=== PATIENT | male | born 1960 | race Caucasian/White ===

== ENCOUNTER 2020-10-03 09:41 | Emergency (ER) | payer SELFPAY ==
[2020-10-03] MEDS ORDERED: Sodium Chloride 0.9% 10 ML Syringe FLUSH PRN (10:27)
[2020-10-03] MEDS ORDERED: Sodium Chloride 0.9% 500 ML IV ONE (10:27)
[2020-10-03] MEDS ORDERED: MVI, Adult with Vitamin K 10 ML, Thiamine 100 MG, Folic Acid 1 MG, Magnesium Sulfate 3 ... IV SCH ×5 (11:00)
--- NOTE | 2020-10-03 11:04 | EDM.PDOC ---
ED HPI GENERAL MEDICAL PROBLEM - General Stated Complaint: ALTERED LEVEL OF CONSCIOUSNESS Time Seen by Provider: 10/03/20 10:15 Source of Information: Reports: Patient, EMS History Limitations: Reports: Other (he states he is confused) - History of Present Illness INITIAL COMMENTS - FREE TEXT/NARRATIVE: 60 year old male with PMH of ETOH abuse presents to ED after reported 5 days of detoxing at home. He reports several falls in the past few weeks. His sister found him on the porch after he tripped on the step. Unknown how long patient was down. He is a poor historian with his history of falls. Left knee pain and bruising in different stages of healing, patient states he has fallen at least 3 times on his left knee. He admits to visual hallucinations decreasing over the past 3 days. Denies any PMH, CP, fever, abd pain, itching, SOB, KUMAR. + nausea, was given 4mg PO zofran by EMS. Location: Reports: Lower Extremity, Left Severity: Mild - Related Data Allergies Allergy/AdvReac Type Severity Reaction Status Date / Time No Known Allergies Allergy Verified 10/03/20 11:08 ED ROS GENERAL - Review of Systems Review Of Systems: See Below Constitutional: Reports: Weakness HEENT: Reports: No Symptoms Respiratory: Reports: No Symptoms Cardiovascular: Reports: No Symptoms Endocrine: Reports: No Symptoms GI/Abdominal: Reports: No Symptoms : Reports: No Symptoms Musculoskeletal: Reports: Leg Pain Skin: Reports: Bruising (left knee) Neurological: Reports: Confusion, Tremors, Other (mild tremora in bilateral hands noted) Psychiatric: Reports: Confusion, Hallucinations. Denies: Homicidal Ideation, Suicidal Ideation Hematologic/Lymphatic: Reports: No Symptoms Immunologic: Reports: No Symptoms ED EXAM, GENERAL - Physical Exam Exam: See Below Exam Limited By: No Limitations General Appearance: Alert Eye Exam: Bilateral Eye: Nystagmus, PERRL, Other (yellow sclera noted) Ears: Normal External Exam, Normal Canal, Hearing Grossly Normal, Normal TMs Ear Exam: Bilateral Ear: Auricle Normal, Canal Normal, TM normal Nose: Normal Inspection, Normal Mucosa, No Blood Throat/Mouth: Normal Inspection, Normal Lips, Normal Teeth, Normal Gums, Normal Oropharynx, Normal Voice, No Airway Compromise, Other (dry mouth) Head: Atraumatic Neck: Normal Inspection, Non-Tender, Full Range of Motion. No: Carotid Bruit, Lymphadenopathy (R) Respiratory/Chest: No Respiratory Distress, Lungs Clear, Normal Breath Sounds, No Accessory Muscle Use, Chest Non-Tender Cardiovascular: Normal Peripheral Pulses, No Edema, No JVD, No Murmur, Tachycardia Peripheral Pulses: 3+: Carotid (L), Carotid (R), Radial (L), Radial (R), Posterior Tibial (L), Posterior Tibial (R), Dorsalis Pedis (L), Dorsalis Pedis (R) GI/Abdominal: Normal Bowel Sounds, Soft, Non-Tender, Distended Back Exam: Normal Inspection, Full Range of Motion. No: CVA Tenderness (R), CVA Tenderness (L) Extremities: Normal Inspection, Normal Range of Motion, No Pedal Edema, Leg Pain, Mottled Neurological: Alert, Oriented, CN II-XII Intact, No Motor/Sensory Deficits, Confused Psychiatric: Normal Affect, Normal Mood Skin Exam: Dry, Intact, No Rash, Cool, Pallor Lymphatic: No Adenopathy Course - Vital Signs Last Recorded V/S: Last Vital Signs Temp 96.9 F 10/03/20 10:10 Pulse 107 H 10/03/20 14:18 Resp 18 10/03/20 14:18 BP 186/104 H 10/03/20 14:18 Pulse Ox 98 10/03/20 12:31 - Orders/Labs/Meds Orders: Active Orders 24 hr Category Date Time Status CIWAA Assessment [RC] Q30M Care 10/03/20 10:48 Active EKG Documentation Completion [RC] ASDIRECTED Care 10/03/20 10:26 Active EKG Documentation Completion [RC] ASDIRECTED Care 10/03/20 13:11 Active LACTIC ACID [CHEM] Stat Lab 10/03/20 14:42 Ordered TROPONIN I [CHEM] Stat Lab 10/03/20 14:43 Ordered MVI, Adult with Vitamin K [Infuvite Adult] 10 ml Med 10/03/20 11:00 Active Thiamine [Vitamin B-1] 100 mg Folic Acid 1 mg Magnesium Sulfate [Magnesium Sulfate 50%] 3 gm Sodium Chloride 0.9% [Normal Saline] 1,000 ml IV ASDIRECTED Magnesium Sulfate [Magnesium Sulfate 50%] 4 gm Med 10/03/20 14:45 Active Sodium Chloride 0.9% [Normal Saline] 50 ml IV ASDIRECTED Sodium Chloride 0.9% [Saline Flush] Med 10/03/20 10:27 Active 10 ml FLUSH ASDIRECTED PRN Sodium Chloride 0.9% with KCl [Normal Saline with 40 Med 10/03/20 13:15 Active mEq KCl] 2,000 ml IV ASDIRECTED Peripheral IV Insertion Adult [OM.PC] Routine Oth 10/03/20 10:27 Ordered EKG 12 Lead [EK] Routine Ther 10/03/20 10:26 Ordered EKG 12 Lead [EK] Stat Ther 10/03/20 13:10 Ordered Medication Orders Multivitamins/Minerals 10 ml/Thiamine HCl 100 mg/ Folic Acid 1 mg/ Magnesium Sulfate 3 gm/ Sodium Chloride 1,017.2 mls @ 1,000 mls/hr IV ASDIRECTED DAMIÁN Last Admin: 10/03/20 11:23 Dose: 1,000 mls/hr Documented by: JOSH Potassium Chloride/Sodium Chloride (Normal Saline With 40 Meq Kcl) 2,000 mls @ 150 mls/hr IV ASDIRECTED DAMIÁN Magnesium Sulfate 4 gm/ Sodium (Chloride) 58 mls @ 60 mls/hr IV ASDIRECTED DAMIÁN Sodium Chloride (Sodium Chloride 0.9% 10 Ml Syringe) 10 ml FLUSH ASDIRECTED PRN PRN Reason: Keep Vein Open Last Admin: 10/03/20 11:24 Dose: 10 ml Documented by: JOSH Labs: Laboratory Tests 10/03/20 10/03/20 10/03/20 Range/Units 10:17 10:17 10:17 WBC 17.5 H (4.0-11.0) K/uL RBC 4.44 L (4.50-6.50) M/uL Hgb 16.3 (13.0-18.0) g/dL Hct 46.0 (40.0-54.0) % MCV 104 H (76-96) fL MCH 36.7 H (27.0-32.0) pg MCHC 35.4 H (31.0-35.0) g/dL RDW 14.4 (11.0-16.0) % Plt Count 65 L (150-400) K/uL MPV 13.0 H (6.0-10.0) fL Neut % (Auto) 78.6 H (45.0-70.0) % Lymph % (Auto) 11.3 L (20.0-40.0) % Reynolds % (Auto) 9.9 (3.0-10.0) % Eos % (Auto) 0.1 L (1.0-5.0) % Baso % (Auto) 0.1 (0.0-0.5) % Neut # (Auto) 13.80 H (2.00-7.50) K/uL Lymph # (Auto) 1.98 (1.50-4.00) K/uL Reynolds # (Auto) 1.73 H (0.20-0.80) K/uL Eos # (Auto) 0.01 L (0.04-0.40) K/uL Baso # (Auto) 0.01 L (0.02-0.10) K/uL PT (9.0-11.5) sec INR (1.0-3.5) ABG pH (7.35-7.45) ABG pCO2 (35-45) mmHg ABG pO2 (80-105) mmHg ABG HCO3 (22-26) mmol/L ABG O2 Saturation (95-98) % ABG Base Excess (-2-2) O2 Delivery Device Sodium 137 (136-145) mmol/L Potassium 1.6 L* (3.5-5.1) mmol/L Chloride 80 L* (98-107) mmol/L Carbon Dioxide 33.2 H (21.0-32.0) mmol/L Anion Gap 25.4 H (5.0-15.0) mmol/L BUN 16 (8-26) mg/dL Creatinine 2.61 H (0.70-1.30) mg/dL Est Cr Clr Drug Dosing 31.85 mL/min Estimated GFR (MDRD) 25 L (>60) MLS/MIN BUN/Creatinine Ratio 6.1 (6-25) Glucose 88 (74-100) mg/dL Lactic Acid (0.4-2.0) mmol/L Calcium 16.5 H* (8.5-10.1) mg/dL Phosphorus (2.5-4.9) mg/dL Magnesium (1.8-2.4) mg/dL Total Bilirubin 4.7 H (0.0-1.0) mg/dL AST 149 H (15-37) U/L ALT 80 H (12-78) U/L Alkaline Phosphatase 133 H (46-116) U/L Ammonia 15 (11-32) umol/L Creatine Kinase (21-232) U/L Troponin I (0.000-0.060) ng/mL Total Protein 7.6 (6.4-8.2) g/dL Albumin 3.5 (3.4-5.0) g/dL Globulin 4.1 (2.2-4.2) g/dL Albumin/Globulin Ratio 0.9 (0.8-2.0) TSH, Ultra Sensitive (0.358-3.740) uIU/mL Urine Color Urine Appearance (CLEAR) Urine pH (5.0-8.0) Ur Specific [place] (1.003-1.030) Urine Protein (NEGATIVE) mg/dL Urine Glucose (UA) (NEGATIVE) mg/dL Urine Ketones (NEGATIVE) mg/dL Urine Occult Blood (NEGATIVE) Urine Nitrite (NEGATIVE) Urine Bilirubin (NEGATIVE) Urine Urobilinogen (0.2-1.0) E.U./dL Ur Leukocyte Esterase (NEGATIVE) U Hyaline Cast (Auto) /HPF Urine RBC /HPF Urine WBC /HPF Urine WBC Clumps /HPF Ur Squamous Epith Cells /HPF Urine Bacteria /HPF Ethyl Alcohol < 0.0 L (<3.0) mg/dL SARS-CoV-2 RNA (JAIDEN) (NEGATIVE) 10/03/20 10/03/20 10/03/20 Range/Units 10:26 10:57 11:24 WBC (4.0-11.0) K/uL RBC (4.50-6.50) M/uL Hgb (13.0-18.0) g/dL Hct (40.0-54.0) % MCV (76-96) fL MCH (27.0-32.0) pg MCHC (31.0-35.0) g/dL RDW (11.0-16.0) % Plt Count (150-400) K/uL MPV (6.0-10.0) fL Neut % (Auto) (45.0-70.0) % Lymph % (Auto) (20.0-40.0) % Reynolds % (Auto) (3.0-10.0) % Eos % (Auto) (1.0-5.0) % Baso % (Auto) (0.0-0.5) % Neut # (Auto) (2.00-7.50) K/uL Lymph # (Auto) (1.50-4.00) K/uL Reynolds # (Auto) (0.20-0.80) K/uL Eos # (Auto) (0.04-0.40) K/uL Baso # (Auto) (0.02-0.10) K/uL PT (9.0-11.5) sec INR (1.0-3.5) ABG pH (7.35-7.45) ABG pCO2 (35-45) mmHg ABG pO2 (80-105) mmHg ABG HCO3 (22-26) mmol/L ABG O2 Saturation (95-98) % ABG Base Excess (-2-2) O2 Delivery Device Sodium (136-145) mmol/L Potassium (3.5-5.1) mmol/L Chloride (98-107) mmol/L Carbon Dioxide (21.0-32.0) mmol/L Anion Gap (5.0-15.0) mmol/L BUN (8-26) mg/dL Creatinine (0.70-1.30) mg/dL Est Cr Clr Drug Dosing mL/min Estimated GFR (MDRD) (>60) MLS/MIN BUN/Creatinine Ratio (6-25) Glucose (74-100) mg/dL Lactic Acid 17.4 H (0.4-2.0) mmol/L Calcium (8.5-10.1) mg/dL Phosphorus (2.5-4.9) mg/dL Magnesium (1.8-2.4) mg/dL Total Bilirubin (0.0-1.0) mg/dL AST (15-37) U/L ALT (12-78) U/L Alkaline Phosphatase (46-116) U/L Ammonia (11-32) umol/L Creatine Kinase 732 H (21-232) U/L Troponin I 0.730 H* (0.000-0.060) ng/mL Total Protein (6.4-8.2) g/dL Albumin (3.4-5.0) g/dL Globulin (2.2-4.2) g/dL Albumin/Globulin Ratio (0.8-2.0) TSH, Ultra Sensitive (0.358-3.740) uIU/mL Urine Color Urine Appearance (CLEAR) Urine pH (5.0-8.0) Ur Specific [place] (1.003-1.030) Urine Protein (NEGATIVE) mg/dL Urine Glucose (UA) (NEGATIVE) mg/dL Urine Ketones (NEGATIVE) mg/dL Urine Occult Blood (NEGATIVE) Urine Nitrite (NEGATIVE) Urine Bilirubin (NEGATIVE) Urine Urobilinogen (0.2-1.0) E.U./dL Ur Leukocyte Esterase (NEGATIVE) U Hyaline Cast (Auto) /HPF Urine RBC /HPF Urine WBC /HPF Urine WBC Clumps /HPF Ur Squamous Epith Cells /HPF Urine Bacteria /HPF Ethyl Alcohol (<3.0) mg/dL SARS-CoV-2 RNA (JAIDEN) (NEGATIVE) 10/03/20 10/03/20 10/03/20 Range/Units 11:56 12:21 13:14 WBC (4.0-11.0) K/uL RBC (4.50-6.50) M/uL Hgb (13.0-18.0) g/dL Hct (40.0-54.0) % MCV (76-96) fL MCH (27.0-32.0) pg MCHC (31.0-35.0) g/dL RDW (11.0-16.0) % Plt Count (150-400) K/uL MPV (6.0-10.0) fL Neut % (Auto) (45.0-70.0) % Lymph % (Auto) (20.0-40.0) % Reynolds % (Auto) (3.0-10.0) % Eos % (Auto) (1.0-5.0) % Baso % (Auto) (0.0-0.5) % Neut # (Auto) (2.00-7.50) K/uL Lymph # (Auto) (1.50-4.00) K/uL Reynolds # (Auto) (0.20-0.80) K/uL Eos # (Auto) (0.04-0.40) K/uL Baso # (Auto) (0.02-0.10) K/uL PT (9.0-11.5) sec INR (1.0-3.5) ABG pH (7.35-7.45) ABG pCO2 (35-45) mmHg ABG pO2 (80-105) mmHg ABG HCO3 (22-26) mmol/L ABG O2 Saturation (95-98) % ABG Base Excess (-2-2) O2 Delivery Device Sodium (136-145) mmol/L Potassium (3.5-5.1) mmol/L Chloride (98-107) mmol/L Carbon Dioxide (21.0-32.0) mmol/L Anion Gap (5.0-15.0) mmol/L BUN (8-26) mg/dL Creatinine (0.70-1.30) mg/dL Est Cr Clr Drug Dosing mL/min Estimated GFR (MDRD) (>60) MLS/MIN BUN/Creatinine Ratio (6-25) Glucose (74-100) mg/dL Lactic Acid (0.4-2.0) mmol/L Calcium (8.5-10.1) mg/dL Phosphorus (2.5-4.9) mg/dL Magnesium 2.5 H (1.8-2.4) mg/dL Total Bilirubin (0.0-1.0) mg/dL AST (15-37) U/L ALT (12-78) U/L Alkaline Phosphatase (46-116) U/L Ammonia (11-32) umol/L Creatine Kinase (21-232) U/L Troponin I (0.000-0.060) ng/mL Total Protein (6.4-8.2) g/dL Albumin (3.4-5.0) g/dL Globulin (2.2-4.2) g/dL Albumin/Globulin Ratio (0.8-2.0) TSH, Ultra Sensitive 3.181 (0.358-3.740) uIU/mL Urine Color Urine Appearance (CLEAR) Urine pH (5.0-8.0) Ur Specific [place] (1.003-1.030) Urine Protein (NEGATIVE) mg/dL Urine Glucose (UA) (NEGATIVE) mg/dL Urine Ketones (NEGATIVE) mg/dL Urine Occult Blood (NEGATIVE) Urine Nitrite (NEGATIVE) Urine Bilirubin (NEGATIVE) Urine Urobilinogen (0.2-1.0) E.U./dL Ur Leukocyte Esterase (NEGATIVE) U Hyaline Cast (Auto) /HPF Urine RBC /HPF Urine WBC /HPF Urine WBC Clumps /HPF Ur Squamous Epith Cells /HPF Urine Bacteria /HPF Ethyl Alcohol (<3.0) mg/dL SARS-CoV-2 RNA (JAIDEN) Negative (NEGATIVE) 10/03/20 10/03/20 10/03/20 Range/Units 13:14 13:15 13:20 WBC (4.0-11.0) K/uL RBC (4.50-6.50) M/uL Hgb (13.0-18.0) g/dL Hct (40.0-54.0) % MCV (76-96) fL MCH (27.0-32.0) pg MCHC (31.0-35.0) g/dL RDW (11.0-16.0) % Plt Count (150-400) K/uL MPV (6.0-10.0) fL Neut % (Auto) (45.0-70.0) % Lymph % (Auto) (20.0-40.0) % Reynolds % (Auto) (3.0-10.0) % Eos % (Auto) (1.0-5.0) % Baso % (Auto) (0.0-0.5) % Neut # (Auto) (2.00-7.50) K/uL Lymph # (Auto) (1.50-4.00) K/uL Reynolds # (Auto) (0.20-0.80) K/uL Eos # (Auto) (0.04-0.40) K/uL Baso # (Auto) (0.02-0.10) K/uL PT (9.0-11.5) sec INR (1.0-3.5) ABG pH 7.53 H* (7.35-7.45) ABG pCO2 50.0 H (35-45) mmHg ABG pO2 57.6 L* (80-105) mmHg ABG HCO3 41.7 H (22-26) mmol/L ABG O2 Saturation 91.8 L (95-98) % ABG Base Excess 19.0 H (-2-2) O2 Delivery Device Room air Sodium (136-145) mmol/L Potassium 1.8 L* (3.5-5.1) mmol/L Chloride (98-107) mmol/L Carbon Dioxide (21.0-32.0) mmol/L Anion Gap (5.0-15.0) mmol/L BUN (8-26) mg/dL Creatinine (0.70-1.30) mg/dL Est Cr Clr Drug Dosing mL/min Estimated GFR (MDRD) (>60) MLS/MIN BUN/Creatinine Ratio (6-25) Glucose (74-100) mg/dL Lactic Acid (0.4-2.0) mmol/L Calcium (8.5-10.1) mg/dL Phosphorus (2.5-4.9) mg/dL Magnesium (1.8-2.4) mg/dL Total Bilirubin (0.0-1.0) mg/dL AST (15-37) U/L ALT (12-78) U/L Alkaline Phosphatase (46-116) U/L Ammonia (11-32) umol/L Creatine Kinase (21-232) U/L Troponin I (0.000-0.060) ng/mL Total Protein (6.4-8.2) g/dL Albumin (3.4-5.0) g/dL Globulin (2.2-4.2) g/dL Albumin/Globulin Ratio (0.8-2.0) TSH, Ultra Sensitive (0.358-3.740) uIU/mL Urine Color Yellow Urine Appearance Cloudy (CLEAR) Urine pH 5.0 (5.0-8.0) Ur Specific [place] >= 1.030 (1.003-1.030) Urine Protein >=300 H (NEGATIVE) mg/dL Urine Glucose (UA) Negative (NEGATIVE) mg/dL Urine Ketones 15 H (NEGATIVE) mg/dL Urine Occult Blood Moderate H (NEGATIVE) Urine Nitrite Negative (NEGATIVE) Urine Bilirubin Moderate H (NEGATIVE) Urine Urobilinogen 1.0 (0.2-1.0) E.U./dL Ur Leukocyte Esterase Negative (NEGATIVE) U Hyaline Cast (Auto) Moderate /HPF Urine RBC 20-30 H /HPF Urine WBC 5-10 H /HPF Urine WBC Clumps Few /HPF Ur Squamous Epith Cells Many /HPF Urine Bacteria Moderate H /HPF Ethyl Alcohol (<3.0) mg/dL SARS-CoV-2 RNA (JAIDEN) (NEGATIVE) 10/03/20 10/03/20 Range/Units 14:04 14:04 WBC (4.0-11.0) K/uL RBC (4.50-6.50) M/uL Hgb (13.0-18.0) g/dL Hct (40.0-54.0) % MCV (76-96) fL MCH (27.0-32.0) pg MCHC (31.0-35.0) g/dL RDW (11.0-16.0) % Plt Count (150-400) K/uL MPV (6.0-10.0) fL Neut % (Auto) (45.0-70.0) % Lymph % (Auto) (20.0-40.0) % Reynolds % (Auto) (3.0-10.0) % Eos % (Auto) (1.0-5.0) % Baso % (Auto) (0.0-0.5) % Neut # (Auto) (2.00-7.50) K/uL Lymph # (Auto) (1.50-4.00) K/uL Reynolds # (Auto) (0.20-0.80) K/uL Eos # (Auto) (0.04-0.40) K/uL Baso # (Auto) (0.02-0.10) K/uL PT 13.2 H (9.0-11.5) sec INR 1.3 (1.0-3.5) ABG pH (7.35-7.45) ABG pCO2 (35-45) mmHg ABG pO2 (80-105) mmHg ABG HCO3 (22-26) mmol/L ABG O2 Saturation (95-98) % ABG Base Excess (-2-2) O2 Delivery Device Sodium 127 L (136-145) mmol/L Potassium 1.9 L* (3.5-5.1) mmol/L Chloride 84 L* (98-107) mmol/L Carbon Dioxide 40.6 H D (21.0-32.0) mmol/L Anion Gap 4.3 L (5.0-15.0) mmol/L BUN 16 (8-26) mg/dL Creatinine 2.12 H (0.70-1.30) mg/dL Est Cr Clr Drug Dosing 39.22 mL/min Estimated GFR (MDRD) 32 L (>60) MLS/MIN BUN/Creatinine Ratio 7.5 (6-25) Glucose 120 H D (74-100) mg/dL Lactic Acid (0.4-2.0) mmol/L Calcium 13.9 H (8.5-10.1) mg/dL Phosphorus 4.7 (2.5-4.9) mg/dL Magnesium 2.1 (1.8-2.4) mg/dL Total Bilirubin (0.0-1.0) mg/dL AST (15-37) U/L ALT (12-78) U/L Alkaline Phosphatase (46-116) U/L Ammonia (11-32) umol/L Creatine Kinase (21-232) U/L Troponin I (0.000-0.060) ng/mL Total Protein (6.4-8.2) g/dL Albumin (3.4-5.0) g/dL Globulin (2.2-4.2) g/dL Albumin/Globulin Ratio (0.8-2.0) TSH, Ultra Sensitive (0.358-3.740) uIU/mL Urine Color Urine Appearance (CLEAR) Urine pH (5.0-8.0) Ur Specific [place] (1.003-1.030) Urine Protein (NEGATIVE) mg/dL Urine Glucose (UA) (NEGATIVE) mg/dL Urine Ketones (NEGATIVE) mg/dL Urine Occult Blood (NEGATIVE) Urine Nitrite (NEGATIVE) Urine Bilirubin (NEGATIVE) Urine Urobilinogen (0.2-1.0) E.U./dL Ur Leukocyte Esterase (NEGATIVE) U Hyaline Cast (Auto) /HPF Urine RBC /HPF Urine WBC /HPF Urine WBC Clumps /HPF Ur Squamous Epith Cells /HPF Urine Bacteria /HPF Ethyl Alcohol (<3.0) mg/dL SARS-CoV-2 RNA (JAIDEN) (NEGATIVE) Meds: Medications Generic Name Dose Route Start Last Admin Trade Name Freq PRN Reason Stop Dose Admin Multivitamins/Minerals 10 ml/ 1,017.2 mls @ 1,000 mls/hr 10/03/20 11:00 10/03/20 11:23 Thiamine HCl 100 mg/ Folic IV 1,000 mls/hr Acid 1 mg/ Magnesium Sulfate 3 ASDIRECTED DAMIÁN Administration gm/ Sodium Chloride Potassium Chloride/Sodium Chloride 2,000 mls @ 150 mls/hr 10/03/20 13:15 Normal Saline With 40 Meq Kcl IV ASDIRECTED DAMIÁN Magnesium Sulfate 4 gm/ Sodium 58 mls @ 60 mls/hr 10/03/20 14:45 Chloride IV ASDIRECTED DAMIÁN Sodium Chloride 10 ml 10/03/20 10:27 10/03/20 11:24 Sodium Chloride 0.9% 10 Ml Syringe FLUSH 10 ml ASDIRECTED PRN Administration Keep Vein Open Discontinued Medications Generic Name Dose Route Start Last Admin Trade Name Freq PRN Reason Stop Dose Admin Sodium Chloride 500 mls @ 500 mls/hr 10/03/20 10:27 10/03/20 10:15 Normal Saline IV 10/03/20 11:26 500 mls/hr .BOLUS ONE Administration Potassium Chloride Confirm 10/03/20 12:13 10/03/20 12:22 Kcl In Water 10 Meq/50 Ml Administered 10/03/20 12:14 50 mls/hr Dose Administration 100 mls @ as directed .ROUTE .STK-MED ONE Potassium Chloride 10 meq/ 50 mls @ 50 mls/hr 10/03/20 12:21 10/03/20 12:00 Premix IV 10/03/20 13:20 50 mls/hr ONETIME ONE Administration Potassium Chloride/Sodium Chloride Confirm 10/03/20 13:00 10/03/20 13:00 Normal Saline With 40 Meq Kcl Administered 10/03/20 13:01 250 mls/hr Dose Administration 1,000 mls @ as directed .ROUTE .STK-MED ONE Ceftriaxone Sodium 2 gm/ 100 mls @ 100 mls/hr 10/03/20 13:11 10/03/20 13:29 Sodium Chloride IV 10/03/20 14:10 100 mls/hr ONETIME ONE Administration Ceftriaxone Sodium 2 gm/ 50 mls @ 50 mls/hr 10/03/20 14:09 Sodium Chloride IV 10/03/20 14:10 ONETIME ONE Magnesium Sulfate 4 gm/ Sodium 58 mls @ 60 mls/hr 10/03/20 14:45 Chloride IV 10/03/20 23:59 ASDIRECTED DAMIÁN Magnesium Sulfate 4 gm 10/03/20 13:13 Magnesium Sulfate/Water 4 Gm/50 Ml Premix Bag IV 10/03/20 13:14 ONETIME ONE Potassium Chloride Confirm 10/03/20 12:14 Potassium Chloride 20 Meq Tab.Er Administered 10/03/20 12:15 Dose 40 meq .ROUTE .STK-MED ONE Potassium Chloride 40 meq 10/03/20 12:20 10/03/20 12:22 Potassium Chloride 20 Meq Tab.Er PO 10/03/20 12:21 40 meq ONETIME ONE Administration Potassium Chloride 40 meq 10/03/20 12:41 10/03/20 13:29 Potassium Chloride 20 Meq Tab.Er PO 10/03/20 12:42 40 meq ONETIME ONE Administration Departure - Departure Time of Disposition: 15:52 Disposition: DC/Tfer to [facility] ([facility]3] Hospital 02 Condition: Fair Clinical Impression: Alcohol abuse, Elevated troponin, Pyelonephritis, acute, Hypokalemia, Alcohol withdrawal delirium Leukocytosis Qualifiers: Leukocytosis type: unspecified Qualified Code(s): D72.829 - Elevated white blood cell count, unspecified Pancreatitis Qualifiers: Chronicity: acute Pancreatitis type: other Acute pancreatitis complication: unspecified Qualified Code(s): K85.80 - Other acute pancreatitis without necrosis or infection - Discharge Information *PRESCRIPTION DRUG MONITORING PROGRAM REVIEWED*: Not Applicable *COPY OF PRESCRIPTION DRUG MONITORING REPORT IN PATIENT LEONIDAS: Not Applicable Referrals: PCP,None [Primary Care Provider] - Sepsis Event Note (ED) - Focused Exam Vital Signs: Vital Signs Temp Pulse Resp BP Pulse Ox 10/03/20 14:18 107 H 18 186/104 H 10/03/20 12:31 150/90 H 98 10/03/20 10:10 96.9 F 119 H 20 117/79 98 - My Orders Last 24 Hours: My Active Orders 10/03/20 10:26 EKG Documentation Completion [RC] ASDIRECTED EKG 12 Lead [EK] Routine 10/03/20 10:27 Sodium Chloride 0.9% [Saline Flush] 10 ml FLUSH ASDIRECTED PRN Peripheral IV Insertion Adult [OM.PC] Routine 10/03/20 10:48 CIWAA Assessment [RC] Q30M 10/03/20 11:00 MVI, Adult with Vitamin K [Infuvite Adult] 10 ml Thiamine [Vitamin B-1] 100 mg Folic Acid 1 mg Magnesium Sulfate [Magnesium Sulfate 50%] 3 gm Sodium Chloride 0.9% [Normal Saline] 1,000 ml IV ASDIRECTED 10/03/20 14:42 LACTIC ACID [CHEM] Stat 10/03/20 14:43 TROPONIN I [CHEM] Stat 10/03/20 14:45 Magnesium Sulfate [Magnesium Sulfate 50%] 4 gm Sodium Chloride 0.9% [Normal Saline] 50 ml IV ASDIRECTED - Assessment/Plan Last 24 Hours: My Active Orders 10/03/20 10:26 EKG Documentation Completion [RC] ASDIRECTED EKG 12 Lead [EK] Routine 10/03/20 10:27 Sodium Chloride 0.9% [Saline Flush] 10 ml FLUSH ASDIRECTED PRN Peripheral IV Insertion Adult [OM.PC] Routine 10/03/20 10:48 CIWAA Assessment [RC] Q30M 10/03/20 11:00 MVI, Adult with Vitamin K [Infuvite Adult] 10 ml Thiamine [Vitamin B-1] 100 mg Folic Acid 1 mg Magnesium Sulfate [Magnesium Sulfate 50%] 3 gm Sodium Chloride 0.9% [Normal Saline] 1,000 ml IV ASDIRECTED 10/03/20 14:42 LACTIC ACID [CHEM] Stat 10/03/20 14:43 TROPONIN I [CHEM] Stat 10/03/20 14:45 Magnesium Sulfate [Magnesium Sulfate 50%] 4 gm Sodium Chloride 0.9% [Normal Saline] 50 ml IV ASDIRECTED Assessment:: CXR negative for pneumonia or fractures left ankle and left knee are negative for fractures. Plan: Patient informed of potassium and troponin levels, we discussed transfer, he declines, I told him we will talk more after all the labs have been resulted. He is agreeable to this plan. Called ehospitalist, Dr. Mendez. waiting for call back. [address] Hernandez, she will enter additional orders for the patient, I will transfer patient to [place] [facility]. Patient is now agreeable to the transfer. We will repeat ekg and labs at 1400. [address] Zamora, he will accept patient in [place], we also spoke with the web operations manager chemistry faculty member. Ordered an abd/pelvis CT and head CT per request of Dr. Delatorre, I will call him with results of CT and labs. 1400 labs drawn. crew en eoute. 1445 Dr. Farris call with latest results, he would like 500mg IV rocephin started, patient will go to ICU.
--- NOTE | 2020-10-03 11:13 | PCM.EKG ---
#1 Interpretation EKG Date: 10/03/20 Time: 10:51 Rhythm: Other (sinus tachycardia) [place]: Normal Comparison: NA - No Prior EKG (sinus tach with PVC's) EKG Interpretation Comments: CA interval 130ms QRS duration 92ms QT/QTc 392/567ms P-R-T axes 63 64 63
[2020-10-03] MEDS ORDERED: Potassium Chloride Riders 100 ML ONE (12:13)
[2020-10-03] MEDS ORDERED: Potassium Chloride 20 MEQ Tab.ER ONE (12:14)
[2020-10-03] MEDS ORDERED: Potassium Chloride 20 MEQ Tab.ER PO ONE ×2 (12:20→12:41)
[2020-10-03] MEDS ORDERED: Potassium Chloride Riders 10 MEQ in Premix Bag 1 BAG IV ONE (12:21)
--- NOTE | 2020-10-03 12:30 | CR ---
DATE OF SERVICE: 10/03/2020 CLINICAL DATA: Tachycardia, multiple falls AP chest: No priors. The heart size is normal. There is calcification of the aortic arch. The lungs are clear. No pneumothorax. No pleural effusions. No displaced fractures. No evidence of acute intrathoracic disease. Thank you for allowing us to participate in the care of your patient. CHRIS
--- NOTE | 2020-10-03 12:35 | CR ---
DATE OF SERVICE: 10/03/2020 CLINICAL DATA: Multiple falls Left knee: No priors. Minimal osteoarthritic changes. No acute fracture or dislocation. No lytic or blastic bone lesions. No joint effusion. There are vascular calcifications in the soft tissues. Thank you for allowing us to participate in the care of your patient. CHRIS
--- NOTE | 2020-10-03 12:37 | CR ---
DATE OF SERVICE: 10/03/2020 CLINICAL DATA: Multiple falls Left ankle: No acute fracture or dislocation. There is periosteal reaction adjacent to the posterior malleolus of the distal tibia on the lateral view. This may be related to prior trauma There are plantar and posterior calcaneal spurs. No lytic or blastic bone lesions. There are vascular calcifications in the soft tissues MTDD
[2020-10-03] MEDS ORDERED: Sodium Chloride 0.9% with KCl 1,000 ML ONE (13:00)
[2020-10-03] MEDS ORDERED: cefTRIAXone 2 GM in Sodium Chloride 0.9% 100 ML IV ONE (13:11)
[2020-10-03] MEDS: WATER IV ONE ×2 (13:13→14:58)
[2020-10-03] MEDS: MAGNESIUM SULFATE IV ONE ×2 (13:13→14:58)
[2020-10-03] MEDS ORDERED: SODIUM CHLORIDE 0.9% IV SCH (13:15)
[2020-10-03] MEDS ORDERED: KCL IV SCH (13:15)
--- NOTE | 2020-10-03 14:06 | CT ---
DATE OF SERVICE: 10/03/2020 CLINICAL DATA: Confusion Unenhanced brain CT: Multislice acquisition through the brain without IV contrast was performed. No priors. There is diffuse atrophy. There are periventricular lucencies bilaterally consistent with small vessel ischemic change. No masses or mass effect. No intracranial hemorrhage. No evidence of acute or subacute infarct. No osseous abnormalities. Impression: No acute intracranial abnormalities. MTDD
[2020-10-03] MEDS: cefTRIAXone 2 GM in Sodium Chloride 0.9% 50 ML IV ONE ×2 (14:09→14:58)
--- NOTE | 2020-10-03 14:14 | CT ---
DATE OF SERVICE: 10/03/2020 CLINICAL DATA: Abnormal lab results Unenhanced abdomen and pelvic CT: Multislice acquisition through the abdomen and pelvis without IV or oral contrast was performed. No priors. The lung bases are clear. Stomach is fluid and gas filled and moderately distended. There is fluid within the visualized distal esophagus most likely secondary to GE reflux. The heart size is normal. There is a small pericardial effusion. There is diffuse fatty infiltration of the liver. No focal hepatic lesions. The gallbladder appears normal. No biliary duct dilatation. The spleen appears normal. The pancreas is normal size. No pancreatic duct dilatation. There is, however, peripancreatic fat stranding and a small amount of fluid consistent with mild pancreatitis. No evidence of abscess or phlegmon. The right and left adrenals appear normal. There is a 5.0 cm benign-appearing cyst projecting from the upper pole of the right kidney. There is mild perinephric fat stranding bilaterally. This is probably related to the patient's age. Pyelonephritis should at least be considered. No nephrocalcinosis or nephrolithiasis. No hydronephrosis or hydroureter. There is a Myers catheter within the bladder. The bladder is partially fluid filled. It appears normal. The appendix is not dilated. No evidence of appendicitis. There are scattered air-fluid levels throughout the colon. Colitis should be considered. There is diverticulosis of the sigmoid colon. No evidence of diverticulitis. No free air. No free fluid. No dilated loops of bowel. No adenopathy. No aortic aneurysm. There is a fat containing umbilical hernia. There is degenerative disc disease throughout the lower thoracic and lumbar spine. There is compression deformity of the T11 vertebrae, probably chronic. No other significant findings. MTDD
[2020-10-03] MEDS ORDERED: metroNIDAZOLE/Normal Saline 500 MG in Premix Bag 1 BAG IV ONE (15:00)
[2020-10-03] MEDS ORDERED: metroNIDAZOLE/Normal Saline 100 ML ONE (15:05)
--- NOTE | 2020-10-03 15:10 | EDM.PDOC ---
ED HPI GENERAL MEDICAL PROBLEM - General Chief Complaint: Drug or Alcohol Abuse Stated Complaint: ALTERED LEVEL OF CONSCIOUSNESS Time Seen by Provider: 10/03/20 10:15 Source of Information: Reports: Patient, EMS History Limitations: Reports: Other (he states he is confused) - History of Present Illness INITIAL COMMENTS - FREE TEXT/NARRATIVE: 60 year old male with PMH of ETOH abuse presents to ED after reported 5 days of detoxing at home. He reports several falls in the past few weeks. His sister found him on the porch after he tripped on the step. Unknown how long patient was down. He is a poor historian with his history of falls. Left knee pain and bruising in different stages of healing, patient states he has fallen at least 3 times on his left knee. He admits to visual hallucinations decreasing over the past 3 days. Denies any PMH, CP, fever, abd pain, itching, SOB, KUMAR. + nausea, was given 4mg PO zofran by EMS. Location: Reports: Lower Extremity, Left Severity: Mild Treatments NURSE RN BSN: Reports: Food - Related Data Allergies Allergy/AdvReac Type Severity Reaction Status Date / Time No Known Allergies Allergy Verified 10/03/20 11:08 Past Medical History Psychiatric History: Reports: Addiction, Hallucinations Social & Family History - Caffeine Use Caffeine Use: Reports: Coffee - Alcohol Use Days Per Week of Alcohol Use: 7 Number of Drinks Per Day: 15 Total Drinks Per Week: 105 - Recreational Drug Use Recreational Drug Use: No ED ROS GENERAL - Review of Systems Review Of Systems: Unable To Obtain Reason Not Obtained: unable to see on camera - Physical Exam Exam: Not Obtained Course - Vital Signs Last Recorded V/S: Last Vital Signs Temp 36.1 C 10/03/20 10:10 Pulse 107 H 10/03/20 14:18 Resp 18 10/03/20 14:18 BP 186/104 H 10/03/20 14:18 Pulse Ox 98 10/03/20 12:31 - Orders/Labs/Meds Orders: Active Orders 24 hr Category Date Time Status CIWAA Assessment [RC] Q30M Care 10/03/20 10:48 Active EKG Documentation Completion [RC] ASDIRECTED Care 10/03/20 10:26 Active EKG Documentation Completion [RC] ASDIRECTED Care 10/03/20 13:11 Active LACTIC ACID [CHEM] Stat Lab 10/03/20 15:00 Received LIPASE [CHEM] Stat Lab 10/03/20 15:00 Received TROPONIN I [CHEM] Stat Lab 10/03/20 15:00 Received MVI, Adult with Vitamin K [Infuvite Adult] 10 ml Med 10/03/20 11:00 Active Thiamine [Vitamin B-1] 100 mg Folic Acid 1 mg Magnesium Sulfate [Magnesium Sulfate 50%] 3 gm Sodium Chloride 0.9% [Normal Saline] 1,000 ml IV ASDIRECTED Magnesium Sulfate [Magnesium Sulfate 50%] 4 gm Med 10/03/20 14:45 Active Sodium Chloride 0.9% [Normal Saline] 50 ml IV ASDIRECTED Sodium Chloride 0.9% [Saline Flush] Med 10/03/20 10:27 Active 10 ml FLUSH ASDIRECTED PRN Sodium Chloride 0.9% with KCl [Normal Saline with 40 Med 10/03/20 13:15 Active mEq KCl] 2,000 ml IV ASDIRECTED metroNIDAZOLE/Normal Saline [Flagyl in NS 500 MG/100 ML Med 10/03/20 15:00 Active ] 500 mg Premix Bag 1 bag IV ONETIME Peripheral IV Insertion Adult [OM.PC] Routine Oth 10/03/20 10:27 Ordered EKG 12 Lead [EK] Routine Ther 10/03/20 10:26 Ordered EKG 12 Lead [EK] Stat Ther 10/03/20 13:10 Ordered Medication Orders Multivitamins/Minerals 10 ml/Thiamine HCl 100 mg/ Folic Acid 1 mg/ Magnesium Sulfate 3 gm/ Sodium Chloride 1,017.2 mls @ 1,000 mls/hr IV ASDIRECTED DAMIÁN Last Admin: 10/03/20 11:23 Dose: 1,000 mls/hr Documented by: WALKREN Potassium Chloride/Sodium Chloride (Normal Saline With 40 Meq Kcl) 2,000 mls @ 150 mls/hr IV ASDIRECTED DAMIÁN Magnesium Sulfate 4 gm/ Sodium (Chloride) 58 mls @ 60 mls/hr IV ASDIRECTED DAMIÁN Last Admin: 10/03/20 15:00 Dose: 60 mls/hr Documented by: WALKREN Metronidazole 500 mg/ Premix 100 mls @ 100 mls/hr IV ONETIME ONE Stop: 10/03/20 15:59 Sodium Chloride (Sodium Chloride 0.9% 10 Ml Syringe) 10 ml FLUSH ASDIRECTED PRN PRN Reason: Keep Vein Open Last Admin: 10/03/20 11:24 Dose: 10 ml Documented by: JOSH Labs: Laboratory Tests 10/03/20 10/03/20 10/03/20 Range/Units 10:17 10:17 10:17 WBC 17.5 H (4.0-11.0) K/uL RBC 4.44 L (4.50-6.50) M/uL Hgb 16.3 (13.0-18.0) g/dL Hct 46.0 (40.0-54.0) % MCV 104 H (76-96) fL MCH 36.7 H (27.0-32.0) pg MCHC 35.4 H (31.0-35.0) g/dL RDW 14.4 (11.0-16.0) % Plt Count 65 L (150-400) K/uL MPV 13.0 H (6.0-10.0) fL Neut % (Auto) 78.6 H (45.0-70.0) % Lymph % (Auto) 11.3 L (20.0-40.0) % [place] % (Auto) 9.9 (3.0-10.0) % Eos % (Auto) 0.1 L (1.0-5.0) % Baso % (Auto) 0.1 (0.0-0.5) % Neut # (Auto) 13.80 H (2.00-7.50) K/uL Lymph # (Auto) 1.98 (1.50-4.00) K/uL [place] # (Auto) 1.73 H (0.20-0.80) K/uL Eos # (Auto) 0.01 L (0.04-0.40) K/uL Baso # (Auto) 0.01 L (0.02-0.10) K/uL PT (9.0-11.5) sec INR (1.0-3.5) ABG pH (7.35-7.45) ABG pCO2 (35-45) mmHg ABG pO2 (80-105) mmHg ABG HCO3 (22-26) mmol/L ABG O2 Saturation (95-98) % ABG Base Excess (-2-2) O2 Delivery Device Sodium 137 (136-145) mmol/L Potassium 1.6 L* (3.5-5.1) mmol/L Chloride 80 L* (98-107) mmol/L Carbon Dioxide 33.2 H (21.0-32.0) mmol/L Anion Gap 25.4 H (5.0-15.0) mmol/L BUN 16 (8-26) mg/dL Creatinine 2.61 H (0.70-1.30) mg/dL Est Cr Clr Drug Dosing 31.85 mL/min Estimated GFR (MDRD) 25 L (>60) MLS/MIN BUN/Creatinine Ratio 6.1 (6-25) Glucose 88 (74-100) mg/dL Lactic Acid (0.4-2.0) mmol/L Calcium 16.5 H* (8.5-10.1) mg/dL Phosphorus (2.5-4.9) mg/dL Magnesium (1.8-2.4) mg/dL Total Bilirubin 4.7 H (0.0-1.0) mg/dL AST 149 H (15-37) U/L ALT 80 H (12-78) U/L Alkaline Phosphatase 133 H (46-116) U/L Ammonia 15 (11-32) umol/L Creatine Kinase (21-232) U/L Troponin I (0.000-0.060) ng/mL Total Protein 7.6 (6.4-8.2) g/dL Albumin 3.5 (3.4-5.0) g/dL Globulin 4.1 (2.2-4.2) g/dL Albumin/Globulin Ratio 0.9 (0.8-2.0) TSH, Ultra Sensitive (0.358-3.740) uIU/mL Urine Color Urine Appearance (CLEAR) Urine pH (5.0-8.0) Ur Specific [place] (1.003-1.030) Urine Protein (NEGATIVE) mg/dL Urine Glucose (UA) (NEGATIVE) mg/dL Urine Ketones (NEGATIVE) mg/dL Urine Occult Blood (NEGATIVE) Urine Nitrite (NEGATIVE) Urine Bilirubin (NEGATIVE) Urine Urobilinogen (0.2-1.0) E.U./dL Ur Leukocyte Esterase (NEGATIVE) U Hyaline Cast (Auto) /HPF Urine RBC /HPF Urine WBC /HPF Urine WBC Clumps /HPF Ur Squamous Epith Cells /HPF Urine Bacteria /HPF Ethyl Alcohol < 0.0 L (<3.0) mg/dL SARS-CoV-2 RNA (JAIDEN) (NEGATIVE) 10/03/20 10/03/20 10/03/20 Range/Units 10:26 10:57 11:24 WBC (4.0-11.0) K/uL RBC (4.50-6.50) M/uL Hgb (13.0-18.0) g/dL Hct (40.0-54.0) % MCV (76-96) fL MCH (27.0-32.0) pg MCHC (31.0-35.0) g/dL RDW (11.0-16.0) % Plt Count (150-400) K/uL MPV (6.0-10.0) fL Neut % (Auto) (45.0-70.0) % Lymph % (Auto) (20.0-40.0) % [place] % (Auto) (3.0-10.0) % Eos % (Auto) (1.0-5.0) % Baso % (Auto) (0.0-0.5) % Neut # (Auto) (2.00-7.50) K/uL Lymph # (Auto) (1.50-4.00) K/uL [place] # (Auto) (0.20-0.80) K/uL Eos # (Auto) (0.04-0.40) K/uL Baso # (Auto) (0.02-0.10) K/uL PT (9.0-11.5) sec INR (1.0-3.5) ABG pH (7.35-7.45) ABG pCO2 (35-45) mmHg ABG pO2 (80-105) mmHg ABG HCO3 (22-26) mmol/L ABG O2 Saturation (95-98) % ABG Base Excess (-2-2) O2 Delivery Device Sodium (136-145) mmol/L Potassium (3.5-5.1) mmol/L Chloride (98-107) mmol/L Carbon Dioxide (21.0-32.0) mmol/L Anion Gap (5.0-15.0) mmol/L BUN (8-26) mg/dL Creatinine (0.70-1.30) mg/dL Est Cr Clr Drug Dosing mL/min Estimated GFR (MDRD) (>60) MLS/MIN BUN/Creatinine Ratio (6-25) Glucose (74-100) mg/dL Lactic Acid 17.4 H (0.4-2.0) mmol/L Calcium (8.5-10.1) mg/dL Phosphorus (2.5-4.9) mg/dL Magnesium (1.8-2.4) mg/dL Total Bilirubin (0.0-1.0) mg/dL AST (15-37) U/L ALT (12-78) U/L Alkaline Phosphatase (46-116) U/L Ammonia (11-32) umol/L Creatine Kinase 732 H (21-232) U/L Troponin I 0.730 H* (0.000-0.060) ng/mL Total Protein (6.4-8.2) g/dL Albumin (3.4-5.0) g/dL Globulin (2.2-4.2) g/dL Albumin/Globulin Ratio (0.8-2.0) TSH, Ultra Sensitive (0.358-3.740) uIU/mL Urine Color Urine Appearance (CLEAR) Urine pH (5.0-8.0) Ur Specific [place] (1.003-1.030) Urine Protein (NEGATIVE) mg/dL Urine Glucose (UA) (NEGATIVE) mg/dL Urine Ketones (NEGATIVE) mg/dL Urine Occult Blood (NEGATIVE) Urine Nitrite (NEGATIVE) Urine Bilirubin (NEGATIVE) Urine Urobilinogen (0.2-1.0) E.U./dL Ur Leukocyte Esterase (NEGATIVE) U Hyaline Cast (Auto) /HPF Urine RBC /HPF Urine WBC /HPF Urine WBC Clumps /HPF Ur Squamous Epith Cells /HPF Urine Bacteria /HPF Ethyl Alcohol (<3.0) mg/dL SARS-CoV-2 RNA (JAIDEN) (NEGATIVE) 10/03/20 10/03/20 10/03/20 Range/Units 11:56 12:21 13:14 WBC (4.0-11.0) K/uL RBC (4.50-6.50) M/uL Hgb (13.0-18.0) g/dL Hct (40.0-54.0) % MCV (76-96) fL MCH (27.0-32.0) pg MCHC (31.0-35.0) g/dL RDW (11.0-16.0) % Plt Count (150-400) K/uL MPV (6.0-10.0) fL Neut % (Auto) (45.0-70.0) % Lymph % (Auto) (20.0-40.0) % [place] % (Auto) (3.0-10.0) % Eos % (Auto) (1.0-5.0) % Baso % (Auto) (0.0-0.5) % Neut # (Auto) (2.00-7.50) K/uL Lymph # (Auto) (1.50-4.00) K/uL [place] # (Auto) (0.20-0.80) K/uL Eos # (Auto) (0.04-0.40) K/uL Baso # (Auto) (0.02-0.10) K/uL PT (9.0-11.5) sec INR (1.0-3.5) ABG pH (7.35-7.45) ABG pCO2 (35-45) mmHg ABG pO2 (80-105) mmHg ABG HCO3 (22-26) mmol/L ABG O2 Saturation (95-98) % ABG Base Excess (-2-2) O2 Delivery Device Sodium (136-145) mmol/L Potassium (3.5-5.1) mmol/L Chloride (98-107) mmol/L Carbon Dioxide (21.0-32.0) mmol/L Anion Gap (5.0-15.0) mmol/L BUN (8-26) mg/dL Creatinine (0.70-1.30) mg/dL Est Cr Clr Drug Dosing mL/min Estimated GFR (MDRD) (>60) MLS/MIN BUN/Creatinine Ratio (6-25) Glucose (74-100) mg/dL Lactic Acid (0.4-2.0) mmol/L Calcium (8.5-10.1) mg/dL Phosphorus (2.5-4.9) mg/dL Magnesium 2.5 H (1.8-2.4) mg/dL Total Bilirubin (0.0-1.0) mg/dL AST (15-37) U/L ALT (12-78) U/L Alkaline Phosphatase (46-116) U/L Ammonia (11-32) umol/L Creatine Kinase (21-232) U/L Troponin I (0.000-0.060) ng/mL Total Protein (6.4-8.2) g/dL Albumin (3.4-5.0) g/dL Globulin (2.2-4.2) g/dL Albumin/Globulin Ratio (0.8-2.0) TSH, Ultra Sensitive 3.181 (0.358-3.740) uIU/mL Urine Color Urine Appearance (CLEAR) Urine pH (5.0-8.0) Ur Specific [place] (1.003-1.030) Urine Protein (NEGATIVE) mg/dL Urine Glucose (UA) (NEGATIVE) mg/dL Urine Ketones (NEGATIVE) mg/dL Urine Occult Blood (NEGATIVE) Urine Nitrite (NEGATIVE) Urine Bilirubin (NEGATIVE) Urine Urobilinogen (0.2-1.0) E.U./dL Ur Leukocyte Esterase (NEGATIVE) U Hyaline Cast (Auto) /HPF Urine RBC /HPF Urine WBC /HPF Urine WBC Clumps /HPF Ur Squamous Epith Cells /HPF Urine Bacteria /HPF Ethyl Alcohol (<3.0) mg/dL SARS-CoV-2 RNA (JAIDEN) Negative (NEGATIVE) 10/03/20 10/03/20 10/03/20 Range/Units 13:14 13:15 13:20 WBC (4.0-11.0) K/uL RBC (4.50-6.50) M/uL Hgb (13.0-18.0) g/dL Hct (40.0-54.0) % MCV (76-96) fL MCH (27.0-32.0) pg MCHC (31.0-35.0) g/dL RDW (11.0-16.0) % Plt Count (150-400) K/uL MPV (6.0-10.0) fL Neut % (Auto) (45.0-70.0) % Lymph % (Auto) (20.0-40.0) % [place] % (Auto) (3.0-10.0) % Eos % (Auto) (1.0-5.0) % Baso % (Auto) (0.0-0.5) % Neut # (Auto) (2.00-7.50) K/uL Lymph # (Auto) (1.50-4.00) K/uL [place] # (Auto) (0.20-0.80) K/uL Eos # (Auto) (0.04-0.40) K/uL Baso # (Auto) (0.02-0.10) K/uL PT (9.0-11.5) sec INR (1.0-3.5) ABG pH 7.53 H* (7.35-7.45) ABG pCO2 50.0 H (35-45) mmHg ABG pO2 57.6 L* (80-105) mmHg ABG HCO3 41.7 H (22-26) mmol/L ABG O2 Saturation 91.8 L (95-98) % ABG Base Excess 19.0 H (-2-2) O2 Delivery Device Room air Sodium (136-145) mmol/L Potassium 1.8 L* (3.5-5.1) mmol/L Chloride (98-107) mmol/L Carbon Dioxide (21.0-32.0) mmol/L Anion Gap (5.0-15.0) mmol/L BUN (8-26) mg/dL Creatinine (0.70-1.30) mg/dL Est Cr Clr Drug Dosing mL/min Estimated GFR (MDRD) (>60) MLS/MIN BUN/Creatinine Ratio (6-25) Glucose (74-100) mg/dL Lactic Acid (0.4-2.0) mmol/L Calcium (8.5-10.1) mg/dL Phosphorus (2.5-4.9) mg/dL Magnesium (1.8-2.4) mg/dL Total Bilirubin (0.0-1.0) mg/dL AST (15-37) U/L ALT (12-78) U/L Alkaline Phosphatase (46-116) U/L Ammonia (11-32) umol/L Creatine Kinase (21-232) U/L Troponin I (0.000-0.060) ng/mL Total Protein (6.4-8.2) g/dL Albumin (3.4-5.0) g/dL Globulin (2.2-4.2) g/dL Albumin/Globulin Ratio (0.8-2.0) TSH, Ultra Sensitive (0.358-3.740) uIU/mL Urine Color Yellow Urine Appearance Cloudy (CLEAR) Urine pH 5.0 (5.0-8.0) Ur Specific [place] >= 1.030 (1.003-1.030) Urine Protein >=300 H (NEGATIVE) mg/dL Urine Glucose (UA) Negative (NEGATIVE) mg/dL Urine Ketones 15 H (NEGATIVE) mg/dL Urine Occult Blood Moderate H (NEGATIVE) Urine Nitrite Negative (NEGATIVE) Urine Bilirubin Moderate H (NEGATIVE) Urine Urobilinogen 1.0 (0.2-1.0) E.U./dL Ur Leukocyte Esterase Negative (NEGATIVE) U Hyaline Cast (Auto) Moderate /HPF Urine RBC 20-30 H /HPF Urine WBC 5-10 H /HPF Urine WBC Clumps Few /HPF Ur Squamous Epith Cells Many /HPF Urine Bacteria Moderate H /HPF Ethyl Alcohol (<3.0) mg/dL SARS-CoV-2 RNA (JAIDEN) (NEGATIVE) 10/03/20 10/03/20 Range/Units 14:04 14:04 WBC (4.0-11.0) K/uL RBC (4.50-6.50) M/uL Hgb (13.0-18.0) g/dL Hct (40.0-54.0) % MCV (76-96) fL MCH (27.0-32.0) pg MCHC (31.0-35.0) g/dL RDW (11.0-16.0) % Plt Count (150-400) K/uL MPV (6.0-10.0) fL Neut % (Auto) (45.0-70.0) % Lymph % (Auto) (20.0-40.0) % [place] % (Auto) (3.0-10.0) % Eos % (Auto) (1.0-5.0) % Baso % (Auto) (0.0-0.5) % Neut # (Auto) (2.00-7.50) K/uL Lymph # (Auto) (1.50-4.00) K/uL [place] # (Auto) (0.20-0.80) K/uL Eos # (Auto) (0.04-0.40) K/uL Baso # (Auto) (0.02-0.10) K/uL PT 13.2 H (9.0-11.5) sec INR 1.3 (1.0-3.5) ABG pH (7.35-7.45) ABG pCO2 (35-45) mmHg ABG pO2 (80-105) mmHg ABG HCO3 (22-26) mmol/L ABG O2 Saturation (95-98) % ABG Base Excess (-2-2) O2 Delivery Device Sodium 127 L (136-145) mmol/L Potassium 1.9 L* (3.5-5.1) mmol/L Chloride 84 L* (98-107) mmol/L Carbon Dioxide 40.6 H D (21.0-32.0) mmol/L Anion Gap 4.3 L (5.0-15.0) mmol/L BUN 16 (8-26) mg/dL Creatinine 2.12 H (0.70-1.30) mg/dL Est Cr Clr Drug Dosing 39.22 mL/min Estimated GFR (MDRD) 32 L (>60) MLS/MIN BUN/Creatinine Ratio 7.5 (6-25) Glucose 120 H D (74-100) mg/dL Lactic Acid (0.4-2.0) mmol/L Calcium 13.9 H (8.5-10.1) mg/dL Phosphorus 4.7 (2.5-4.9) mg/dL Magnesium 2.1 (1.8-2.4) mg/dL Total Bilirubin (0.0-1.0) mg/dL AST (15-37) U/L ALT (12-78) U/L Alkaline Phosphatase (46-116) U/L Ammonia (11-32) umol/L Creatine Kinase (21-232) U/L Troponin I (0.000-0.060) ng/mL Total Protein (6.4-8.2) g/dL Albumin (3.4-5.0) g/dL Globulin (2.2-4.2) g/dL Albumin/Globulin Ratio (0.8-2.0) TSH, Ultra Sensitive (0.358-3.740) uIU/mL Urine Color Urine Appearance (CLEAR) Urine pH (5.0-8.0) Ur Specific [place] (1.003-1.030) Urine Protein (NEGATIVE) mg/dL Urine Glucose (UA) (NEGATIVE) mg/dL Urine Ketones (NEGATIVE) mg/dL Urine Occult Blood (NEGATIVE) Urine Nitrite (NEGATIVE) Urine Bilirubin (NEGATIVE) Urine Urobilinogen (0.2-1.0) E.U./dL Ur Leukocyte Esterase (NEGATIVE) U Hyaline Cast (Auto) /HPF Urine RBC /HPF Urine WBC /HPF Urine WBC Clumps /HPF Ur Squamous Epith Cells /HPF Urine Bacteria /HPF Ethyl Alcohol (<3.0) mg/dL SARS-CoV-2 RNA (JAIDEN) (NEGATIVE) Meds: Medications Generic Name Dose Route Start Last Admin Trade Name Freq PRN Reason Stop Dose Admin Multivitamins/Minerals 10 ml/ 1,017.2 mls @ 1,000 mls/hr 10/03/20 11:00 10/03/20 11:23 Thiamine HCl 100 mg/ Folic IV 1,000 mls/hr Acid 1 mg/ Magnesium Sulfate 3 ASDIRECTED DAMIÁN Administration gm/ Sodium Chloride Potassium Chloride/Sodium Chloride 2,000 mls @ 150 mls/hr 10/03/20 13:15 Normal Saline With 40 Meq Kcl IV ASDIRECTED DAMIÁN Magnesium Sulfate 4 gm/ Sodium 58 mls @ 60 mls/hr 10/03/20 14:45 10/03/20 15:00 Chloride IV 60 mls/hr ASDIRECTED DAMIÁN Administration Metronidazole 500 mg/ Premix 100 mls @ 100 mls/hr 10/03/20 15:00 IV 10/03/20 15:59 ONETIME ONE Sodium Chloride 10 ml 10/03/20 10:27 10/03/20 11:24 Sodium Chloride 0.9% 10 Ml Syringe FLUSH 10 ml ASDIRECTED PRN Administration Keep Vein Open Discontinued Medications Generic Name Dose Route Start Last Admin Trade Name Freq PRN Reason Stop Dose Admin Sodium Chloride 500 mls @ 500 mls/hr 10/03/20 10:27 10/03/20 10:15 Normal Saline IV 10/03/20 11:26 500 mls/hr .BOLUS ONE Administration Potassium Chloride Confirm 10/03/20 12:13 10/03/20 12:22 Kcl In Water 10 Meq/50 Ml Administered 10/03/20 12:14 50 mls/hr Dose Administration 100 mls @ as directed .ROUTE .STK-MED ONE Potassium Chloride 10 meq/ 50 mls @ 50 mls/hr 10/03/20 12:21 10/03/20 12:00 Premix IV 10/03/20 13:20 50 mls/hr ONETIME ONE Administration Potassium Chloride/Sodium Chloride Confirm 10/03/20 13:00 10/03/20 13:00 Normal Saline With 40 Meq Kcl Administered 10/03/20 13:01 250 mls/hr Dose Administration 1,000 mls @ as directed .ROUTE .STK-MED ONE Ceftriaxone Sodium 2 gm/ 100 mls @ 100 mls/hr 10/03/20 13:11 10/03/20 13:29 Sodium Chloride IV 10/03/20 14:10 100 mls/hr ONETIME ONE Administration Ceftriaxone Sodium 2 gm/ 50 mls @ 50 mls/hr 10/03/20 14:09 Sodium Chloride IV 10/03/20 14:10 ONETIME ONE Magnesium Sulfate 4 gm/ Sodium 58 mls @ 60 mls/hr 10/03/20 14:45 Chloride IV 10/03/20 23:59 ASDIRECTED DAMIÁN Metronidazole Confirm 10/03/20 15:05 Flagyl In Ns 500 Mg/100 Ml Administered 10/03/20 15:06 Dose 100 mls @ as directed .ROUTE .STK-MED ONE Magnesium Sulfate 4 gm 10/03/20 13:13 Magnesium Sulfate/Water 4 Gm/50 Ml Premix Bag IV 10/03/20 13:14 ONETIME ONE Potassium Chloride Confirm 10/03/20 12:14 Potassium Chloride 20 Meq Tab.Er Administered 10/03/20 12:15 Dose 40 meq .ROUTE .STK-MED ONE Potassium Chloride 40 meq 10/03/20 12:20 10/03/20 12:22 Potassium Chloride 20 Meq Tab.Er PO 10/03/20 12:21 40 meq ONETIME ONE Administration Potassium Chloride 40 meq 10/03/20 12:41 10/03/20 13:29 Potassium Chloride 20 Meq Tab.Er PO 10/03/20 12:42 40 meq ONETIME ONE Administration Departure - Departure Time of Disposition: 15:09 Disposition: DC/Tfer to Acute Hospital 02 Condition: Fair Clinical Impression: Alcohol abuse, Leukocytosis, Elevated troponin, Pyelonephritis, acute, Hypokalemia, Pancreatitis - Discharge Information Referrals: PCP,None [Primary Care Provider] - Sepsis Event Note (ED) - Evaluation Sepsis Screening Result: No Definite Risk - Focused Exam Vital Signs: Vital Signs Temp Pulse Resp BP Pulse Ox 10/03/20 14:18 107 H 18 186/104 H 10/03/20 12:31 150/90 H 98 10/03/20 10:10 36.1 C 119 H 20 117/79 98 - My Orders Last 24 Hours: My Active Orders 10/03/20 13:10 EKG 12 Lead [EK] Stat 10/03/20 13:11 EKG Documentation Completion [RC] ASDIRECTED 10/03/20 13:15 Sodium Chloride 0.9% with KCl [Normal Saline with 40 mEq KCl] 2,000 ml IV ASDIRECTED - Assessment/Plan Last 24 Hours: My Active Orders 10/03/20 13:10 EKG 12 Lead [EK] Stat 10/03/20 13:11 EKG Documentation Completion [RC] ASDIRECTED 10/03/20 13:15 Sodium Chloride 0.9% with KCl [Normal Saline with 40 mEq KCl] 2,000 ml IV ASDIRECTED Assessment:: Vonnie Castro Hospitalist CONSULTATION NOTE: eHospitalist was contacted by [facility] with request of consultation for medical management Reason for consult: Hypokalemia HPI: Patient is a 60-year-old male with history of alcohol abuse who was apparently detoxing at home but has had hallucinations and recurrent falls. Last fall today, was unwitnessed, unknown time that he was down. Labs significant for potassium of 1.6, creatinine 2.1, elevated ALT AST and T bili as well as alk phos. CK 732, troponin 0.73, WBC 17.5, platelets 65. UA with 5-10 WBCs, moderate urine bacteria, negative leukocyte esterase or nitrites. U tox n egative, COVID-19 negative. I was consulted for management of hypokalemia. Reviewed labs and EKG. Recommended 40 mg p.o. potassium X2 doses, NS with 40 mEq potassium X2 bags, banana bag, UA, CT chest abdomen pelvis without contrast, empiric antibiotic coverage with Rocephin 2 g and Flagyl 500 mg every 8 hours. Recommended IV mag with suspicion that it may be low given his history of alcoholism and would need to be repleted in the setting of his hypokalemia. However it returned as 2.1. Does not need further mag supplementation. Review potassium came back as 1.9. Was not able to see patient on camera as patient is being transferred to higher level of care. Thank you for including Vonnie Castro Hospitalist in the patients care. This service is available for further assistance as requested by your care team by calling [phone].
[2020-10-03] MEDS ORDERED: Ondansetron 4 MG/2 ML SDV IVPUSH ONE (15:21)
[2020-10-03] MEDS ORDERED: Ondansetron 4 MG/2 ML SDV ONE (15:31)
== END 2020-10-03 15:37 ==
LOC: LB.ED 09:41
DX: F10.10 Alcohol abuse, uncomplicated (principal); K85.90 Acute pancreatitis without necrosis or infection, unspecified; N10 Acute pyelonephritis; D72.829 Elevated white blood cell count, unspecified; R79.89 Other specified abnormal findings of blood chemistry; E87.6 Hypokalemia; Z20.822 Contact with and (suspected) exposure to COVID-19
CPT/HCPCS: 36415; 36600; 51702; 70450; 71045; 73560-LT; 73600-LT; 74176; 80048; 80053; 80307; 81001; 82140; 82550; 82803; 83605; 83690; 83735; 84100; 84132; 84443; 84484; 85025; 85610; 87040; 93005; 96365; 96367; 96368; 96375; 99285-25; A0425; A0429; A9270-GY; J0696; J2405; J3411; J3475; J3480; J3490; J7030; J7040; U0002